=== PATIENT | female | born 1965 | race African-American/Black ===

== ENCOUNTER 2019-03-25 14:00 | Emergency (ER) | payer BC ==
[~2019-03-25] VITALS: Ht 162.6 cm; Wt 77.7 kg
[2019-03-25 14:22] VITALS: Ht 162.6 cm; Wt 77.7 kg
[2019-03-25] MEDS ORDERED: IBUP-1542 PO (14:59)
[2019-03-25] MEDS ORDERED: PRED20TA PO (14:59)
[2019-03-25] MEDS ORDERED: CEPH-443 PO (14:59)
[2019-03-25] MEDS ORDERED: predniSONE 20 MG TAB PO ONE (15:00)
--- NOTE | 2019-03-25 15:08 | ERD ---
ER Documentation Chief Complaint Chief Complaint pt has right hand pain x 1 day with swelling hx of ra HPI This is a pleasant 54-year-old female who is here for swelling to her left index finger. She woke this morning with some swelling and pain. She flew in last night from [place]. She does have a history of rheumatoid arthritis and feels like this could be a RA flareup. There is no erythema no fever there is no pain with movement but it just feels tight due to some swelling. No pain in the wrist, no known trauma no fever ROS All systems reviewed and are negative except as per history of present illness. Medications Home Meds Active Scripts Ibuprofen* (Motrin*) 600 Mg Tab, 600 MG PO Q8, #30 TAB Prov:LEKKOS,APOSTOLOS A. DO 03/25/19 Cephalexin* (Keflex*) 500 Mg Capsule, 500 MG PO TID for 5 Days, CAP Prov:LEKKOS,APOSTOLOS A. DO 03/25/19 Prednisone* (Prednisone*) 20 Mg Tab, 60 MG PO DAILY for 4 Days, TAB Prov:LEKKOS,APOSTOLOS A. DO 03/25/19 PMhx/Soc Medical and Surgical Hx: pt denies Surgical Hx Hx Miscellaneous Medical Probl: Yes (RA, DM) FmHx Family History: No coronary disease Physical Exam Vitals Vital Signs Date Temp Pulse Resp B/P (MAP) Pulse Ox O2 O2 Flow FiO2 Time Delivery Rate 03/25/19 98.7 77 16 140/82 100 14:22 (101) Physical Exam Const: No acute distress Head: Atraumatic Eyes: Normal Conjunctiva ENT: Normal External Ears, Nose and Mouth. Neck: Full range of motion. No meningismus. Resp: Clear to auscultation bilaterally Cardio: Regular rate and rhythm, no murmurs Abd: Soft, non tender, non distended. Normal bowel sounds Skin: No petechiae or rashes Back: No midline or flank tenderness Ext: No cyanosis, the left index finger has a bit of a sausage appearance to it there is most pain at the MCP joint there is no signs of septic joint there is no erythema the swelling is mild Neur: Awake and alert Psych: Normal Mood and Affect Results 24 hrs Current Medications Medications Dose Sig/Hoda Start Time Status Last (Trade) Ordered Route PRN Stop Time Admin Dose Reason Admin Prednisone 60 mg ONCE ONCE 03/25/19 03/25/19 (Prednisone) PO 15:00 14:52 03/25/19 15:01 Procedures/MDM Patient may be having an RA flare there is no signs of tenosynovitis at this time. I discussed with her warning signs to return. Will provide her with a sling to keep her hand elevated and try some steroids and Motrin Departure Diagnosis: Primary Impression: Rheumatoid arthritis Rheumatoid arthritis location: hand Rheumatoid factor presence: unspecified presence Laterality: left Qualified Codes: M06.9 - Rheumatoid arthritis, unspecified Condition: Stable Patient Instructions: Rheumatoid Arthritis HENRY CANDELARIA DO Mar 25, 2019 15:08
[2019-03-25 15:19] VITALS: BP 136/80; PULSE 77; RESP 16
== END 2019-03-25 15:21 | disposition home or self-care (01) ==
LOC: E/R 14:00
DX: M06.9 Rheumatoid arthritis, unspecified (principal); E11.9 Type 2 diabetes mellitus without complications
CPT/HCPCS: 99283; J7512